=== PATIENT | male | born 1960 | race Caucasian/White ===

== ENCOUNTER 2017-04-21 18:29 | Inpatient (IN) ==
[2017-04-21] MEDS ORDERED: 0.9 % Sodium Chloride 500 ML IVC ONE (18:58)
--- NOTE | 2017-04-21 18:59 | Emergency Department Note ---
Disposition Clinical Impression: Atrial fibrillation with RVR UTI (urinary tract infection) Qualifiers: Urinary tract infection type: site unspecified Hematuria presence: without hematuria Qualified Code(s): N39.0 - Urinary tract infection, site not specified CHF (congestive heart failure) Qualifiers: Heart failure type: unspecified Heart failure chronicity: acute on chronic Qualified Code(s): I50.9 - Heart failure, unspecified Disposition: Admitted As Inpatient Condition: Good Dizziness HPI - General Chief Complaint: ED Dizziness Stated Complaint: dizzy and toe pain Time Seen by Provider: 04/21/17 18:58 Source: patient, EMS Mode of arrival: EMS Limitations: language barrier (cognitive impairment), physical limitation Nursing Notes Reviewed: Yes Vital Signs Reviewed: Yes - History of Present Illness HPI Narrative: Patient presents to the ED from [facility] with report of dizziness and nausea as well as left foot pain from an ulcer. custodial report patient has an ulcer on his left foot that he has been seen for and had cultures drawn. They are concerned with the dizziness and low-grade fever at the skilled nursing today due to possibility of spreading infection and sent him to the ED. He was noted to be tachycardic at the skilled nursing. On arrival here he reports a spinning sensation which he fell and caught himself on his dresser at the skilled nursing. He did not lose consciousness or hit his head. He does still feel dizzy currently. He does report palpitations but denies any chest pain. No headache or shortness of breath. He does complain of pain in his left great toe. He has nausea but no vomiting. He does report some watery diarrhea earlier today. Denies any blurry vision or double vision. Erosive glucose was 106 at the skilled nursing. Other medical history is notable for diabetes, A. fib, CHF and hypothyroidism. - Related Data Home Medications Medication Instructions Recorded Confirmed Dextrose/Dextrin/Maltose 31 gm PO ONCE PRN 09/15/14 04/21/17 [Insta-Glucose Gel] Hydroxychloroquine Sulfate 200 mg PO DAILY 09/15/14 04/21/17 [Plaquenil] Insulin Glargine,Hum.rec.anlog 50 unit SQ HS 09/15/14 04/21/17 [Lantus Solostar] Levothyroxine Sodium [Synthroid] 150 mcg PO DAILY 09/15/14 04/21/17 Nitroglycerin [Nitrostat] 0.4 mg SL 3-4XD PRN 09/15/14 04/21/17 Potassium Chloride 10 meq PO DAILY 09/15/14 04/21/17 Spironolactone [Aldactone] 25 mg PO DAILY 09/15/14 04/21/17 cloNIDine HCl [Clonidine HCl] 0.2 mg PO TID 02/12/15 04/21/17 Aspirin 81 mg PO DAILY 12/22/16 04/21/17 Dimethicone/Zinc Oxide [Nicanor 1 applic TP BID 12/22/16 04/21/17 Protect Cream] Glimepiride [Amaryl] 1 mg PO ACHS 12/22/16 04/21/17 Nystatin POWDER [Nystop] 1 appl TP BID 12/22/16 04/21/17 Cholecalciferol (Vitamin D3) 2,000 unit PO 04/21/17 [Vitamin D] Ferrous Sulfate [Iron] 325 mg PO DAILY 04/21/17 04/21/17 Previous Rx's Medication Instructions Recorded Bumetanide [Bumex] 2 mg PO BID tablet 09/18/14 Metoprolol [Lopressor] 50 mg PO BID tablet 09/18/14 Verapamil ER (24 HR) [Calan SR] 240 mg PO HS 365 Days tablet.er 09/18/14 Allergies Allergy/AdvReac Type Severity Reaction Status Date / Time No Known Allergies Allergy Verified 12/22/16 11:46 Constitutional: Reports: fever. Denies: chills, weakness, weight change Eyes: Denies: eye pain, eye discharge, vision change ENT ED: Denies: ear pain, throat pain, dental pain, hearing loss, epistaxis, congestion, dysphagia Cardiovascular: Reports: palpitations. Denies: chest pain, dyspnea on exertion , edema, syncope Respiratory: Denies: cough, dyspnea, wheezes, hemoptysis, stridor Gastrointestinal: Reports: nausea. Denies: abdominal pain, vomiting, diarrhea, constipation, hematemesis, melena, hematochezia Genitourinary: Denies: urgency, dysuria, frequency, hematuria Musculoskeletal: Reports: as per HPI, arthralgia (left great toe pain). Denies : back pain, neck pain, myalgia Integumentary: Denies: rash, abrasion, lesions Neurological: Denies: headache, weakness, numbness, paresthesias, confusion, abnormal gait, vertigo Psychiatric: Denies: anxiety, depression, suicidal thoughts, homicidal thoughts , auditory hallucinations, visual hallucinations Endocrine: Denies: fatigue Hematological/Lymphatic: Denies: easy bleeding, easy bruising Allergic/Immunologic: Denies: facial swelling, urticaria Past Medical History - Past Medical History Medical history: Reports: diabetes, GERD, atrial fibrillation, hyperlipidemia, hypertension, other, thyroid disease, CHF Psychiatric history: Reports: other - Social History Smoking Status: Unknown if ever smoked Smokeless Tobacco Status: No Alcohol use: Reports: none Drug use: Reports: none Physical Exam - General Limitations: language barrier, physical limitation General appearance: alert, obese - Head Head exam: atraumatic, normocephalic, normal inspection - Eye Eye exam: Present: normal appearance, PERRL, EOMI - ENT ENT exam: normal exam, normal oropharynx, mucous membranes moist - Neck Neck exam: Present: normal inspection, full ROM, trachea midline - Chest Chest inspection: Present: normal inspection, symmetric chest wall rise - Respiratory Respiratory exam: Present: normal lung sounds bilaterally - Cardiovascular Cardiovascular exam: Present: tachycardia, irregular rhythm - Abdominal Exam Abdominal exam: Present: soft, Non-Tender. Absent: tenderness, distention, guarding, rebound, rigidity - Extremities Exam Extremities exam: Present: full ROM, other (Chronic lower extremity swelling with thickened skin and discoloration). Absent: tenderness, pedal edema - Expanded Lower Extremity Exam Foot/toe exam: Present: other (Scabbed ulcer to plantar surface of left great toe, no surrounding redness, warmth or active drainage) Neurovascular/Tendon exam: Absent: motor deficit, sensory deficit, tendon deficit - Back Exam Back exam: Present: normal inspection, full ROM. Absent: tenderness - Neurological Exam Neurological exam: Present: alert, oriented X3 - Psychiatric Psychiatric exam: Present: normal affect, normal mood - Skin Skin exam: Present: warm, dry, intact, normal color Course Course Narrative: History presents to the ED with report of tachycardia, low-grade fever and dizziness with the nursing staff is concerned may be related to spreading infection from his left foot ulcer. On arrival however he was found to be tachycardic with a heart rate in the 140s with A. fib with RVR on site monitor. The ulcer in his toe does not have any evidence of surrounding cellulitis. He has chronic skin changes however in the lower extremities with some pitting edema. Will obtain labs and imaging and given a small fluid bolus. If heart rate does not respond will consider Cardizem. - Reevaluation(s) Reevaluation #1: There is no improvement in heart rate with IV fluids. He was given a Cardizem bolus with only a brief decrease in heart rate into the 110s. Laboratory studies show leukocytosis with left shift but lactic acid is normal. Urinalysis does show evidence of UTI. BNP is elevated and chest x-ray shows pulmonary vascular congestion concerning for CHF exacerbation as well. He was started on a Cardizem drip, given IV lasix and antibiotics for his UTI. He will require admission for rate control of his A. fib as well as continued IV antibiotics and IV diuretics. Reevaluation #2: I spoke to the hospitalist on-call, Dr. Allen, who has agreed to accept the patient. He requested the patient be given 0.25 of Lanoxin while staying on the Cardizem drip at 5mh/hr given the decline in blood pressure. He requested that an additional dose of 0.25 Lanoxin be given in 2 hours if patient's heart rate has remained in the 120s or higher. Arrangements were made for admission and these orders were conveyed to the floor nursing staff. Vital Signs Temperature 98.6 F 04/21/17 18:30 Pulse Rate 140 04/21/17 18:30 Respiratory Rate 20 04/21/17 18:30 Blood Pressure 132/95 04/21/17 18:30 O2 Sat by Pulse Oximetry 97 04/21/17 18:30 Temperature 99.7 F H 04/22/17 04:05 Pulse Rate 108 04/22/17 04:05 Respiratory Rate 18 04/22/17 04:05 Blood Pressure 111/69 04/22/17 04:05 O2 Sat by Pulse Oximetry 92 04/22/17 04:05 Oxygen Delivery Oxygen Delivery Room Air Dizziness - Medical Records Medical records reviewed: Yes I reviewed the patient's medical records. - Lab Data Lab results reviewed: Yes I reviewed the patient's lab results. Result diagrams: 04/21/17 19:23 04/21/17 19:23 Lab Results 04/21/17 04/21/17 04/21/17 Range/Units 19:23 19:23 19:23 WBC 16.0 H (4.3-11.1) K/mcL RBC 5.31 (4.19-5.50) M/mcL Hgb 14.5 (12.9-16.9) g/dL Hct 44.2 (37.5-50.1) % MCV 83.2 (83.0-100.0) fL MCH 27.3 L (28.0-33.3) pg MCHC 32.8 (31.6-35.5) g/dL RDW 16.5 H (11.5-14.5) % Plt Count 104 L (140-400) K/mcL MPV 11.6 (9.4-12.4) fL Seg Neutrophils % 80.0 % Band Neutrophils % 14.0 H (0-4) % Lymphocytes % 2.0 % Monocytes % 4.0 % Neutrophils # 15.0 H (1.6-8.9) K/mcL Lymphocytes # 0.3 L (0.6-4.6) K/mcL Monocytes # 0.6 (0.0-1.3) K/mcL Toxic Granulation Present A (Not Present) Platelet Estimate Normal (Normal) Hypochromasia Present A (Not Present) PT 12.8 H (9.4-12.1) Seconds INR 1.2 APTT 28.9 (26.0-36.0) Seconds Sodium 139 (136-145) mEq/L Potassium 3.3 L (3.5-5.1) mEq/L Chloride 99 (98-107) mEq/L Carbon Dioxide 27 (23-29) mEq/L BUN 28 H (6-20) mg/dL Creatinine 1.38 H (0.70-1.30) mg/dL Est GFR ( Amer) > 60 (> 60) Est GFR (Non-Af Amer) 54 L (> 60) BUN/Creatinine Ratio 20 (6-26) Glucose 97 (70-105) mg/dL Calculated Osmolality 293 (280-300) Lactic Acid (0.5-2.2) mmol/L Calcium 9.2 (8.6-10.3) mg/dL Troponin I < 0.03 (< 0.04) ng/mL B-Natriuretic Peptide (Less than 100) pg/mL TSH 3.055 (0.340-5.600) mcIU/mL Urine Color (Yellow) Urine Clarity (Clear) Urine pH (5.0-8.0) pH Units Ur Specific [place] (1.010-1.025) Urine Protein (Neg-Trace) mg/dL Urine Glucose (UA) (Normal) mg/dL Urine Ketones (Negative) mg/dL Urine Blood (Negative) Urine Nitrite (Negative) Urine Bilirubin (Negative) Urine Urobilinogen (Normal) mg/dL Ur Leukocyte Esterase (Negative) Urine Microscopic RBC (0-3) per hpf Urine Microscopic WBC (0-3) per hpf Ur Squamous Epith Cells (None-Few) per lpf Urine Bacteria (None-Few) per hpf Hyaline Casts (None-Few) per lpf Granular Casts (None Seen) per lpf WBC Casts (None Seen) per lpf Ur Culture Indicated? (NO) 04/21/17 04/21/17 04/21/17 Range/Units 19:23 19:23 20:25 WBC (4.3-11.1) K/mcL RBC (4.19-5.50) M/mcL Hgb (12.9-16.9) g/dL Hct (37.5-50.1) % MCV (83.0-100.0) fL MCH (28.0-33.3) pg MCHC (31.6-35.5) g/dL RDW (11.5-14.5) % Plt Count (140-400) K/mcL MPV (9.4-12.4) fL Seg Neutrophils % % Band Neutrophils % (0-4) % Lymphocytes % % Monocytes % % Neutrophils # (1.6-8.9) K/mcL Lymphocytes # (0.6-4.6) K/mcL Monocytes # (0.0-1.3) K/mcL Toxic Granulation (Not Present) Platelet Estimate (Normal) Hypochromasia (Not Present) PT (9.4-12.1) Seconds INR APTT (26.0-36.0) Seconds Sodium (136-145) mEq/L Potassium (3.5-5.1) mEq/L Chloride (98-107) mEq/L Carbon Dioxide (23-29) mEq/L BUN (6-20) mg/dL Creatinine (0.70-1.30) mg/dL Est GFR ( Amer) (> 60) Est GFR (Non-Af Amer) (> 60) BUN/Creatinine Ratio (6-26) Glucose (70-105) mg/dL Calculated Osmolality (280-300) Lactic Acid 1.5 (0.5-2.2) mmol/L Calcium (8.6-10.3) mg/dL Troponin I (< 0.04) ng/mL B-Natriuretic Peptide 330 H (Less than 100) pg/mL TSH (0.340-5.600) mcIU/mL Urine Color Yellow (Yellow) Urine Clarity Clear (Clear) Urine pH 5.0 (5.0-8.0) pH Units Ur Specific [place] 1.010 (1.010-1.025) Urine Protein 30 H (Neg-Trace) mg/dL Urine Glucose (UA) Normal (Normal) mg/dL Urine Ketones Trace H (Negative) mg/dL Urine Blood Small H (Negative) Urine Nitrite Negative (Negative) Urine Bilirubin Negative (Negative) Urine Urobilinogen Normal (Normal) mg/dL Ur Leukocyte Esterase Small H (Negative) Urine Microscopic RBC 3-5 H (0-3) per hpf Urine Microscopic WBC 30-50 H (0-3) per hpf Ur Squamous Epith Cells Few (None-Few) per lpf Urine Bacteria Many H (None-Few) per hpf Hyaline Casts Few (None-Few) per lpf Granular Casts Moderate H (None Seen) per lpf WBC Casts Few H (None Seen) per lpf Ur Culture Indicated? YES A (NO) - Radiology Data Radiology results reviewed: Yes I reviewed the patient's radiology results. Impressions Chest X-Ray 04/21/17 18:56 IMPRESSION: 1. Pulmonary vascular congestion. 2. Cardial -pericardial margin, similar when compared to the previous exam. D/ / Murtaza Gr MD / Murtaza Gr MD Interpreting Provider: Murtaza Gr MD - EKG Data EKG attestation: Yes I reviewed and interpreted this EKG. Rate: tachycardia Rhythm: A.Fib [place]/QRS: normal Interpretation: other (A-fib with RVR)
[2017-04-21 19:31] LABS: Hematocrit 44.2 % (37.5-50.1); Hemoglobin 14.5 g/dL (12.9-16.9); Mean Corpuscular HGB Conc 32.8 g/dL (31.6-35.5); Mean Corpuscular Hemoglobin 27.3 pg (28.0-33.3); Mean Corpuscular Volume 83.2 fL (83.0-100.0); Mean Platelet Volume 11.6 fL (9.4-12.4); Platelet Count 104 K/mcL (140-400); Red Blood Count 5.31 M/mcL (4.19-5.50); Red Cell Distribution Width 16.5 % (11.5-14.5)
[2017-04-21 19:41] LABS: INR 1.2; Prothrombin Time 12.8 Seconds (9.4-12.1)
[2017-04-21 19:43] LABS: Activated Partial Thrombo Time 28.9 Seconds (26.0-36.0)
[2017-04-21 19:48] LABS: BUN/Creatinine Ratio 20 (6-26); Blood Urea Nitrogen 28 mg/dL (6-20); Calcium 9.2 mg/dL (8.6-10.3); Carbon Dioxide 27 mEq/L (23-29); Chloride 99 mEq/L (98-107); Glucose 97 mg/dL (70-105); Osmolality,Calculated 293 (280-300); Potassium 3.3 mEq/L (3.5-5.1); Sodium 139 mEq/L (136-145); eGFR For Non-African Americans 54 (> 60)
[2017-04-21 19:53] LABS: Troponin I < 0.03 ng/mL (< 0.04)
[2017-04-21 20:06] LABS: Thyroid Stimulating Hormone 3.055 mcIU/mL (0.340-5.600)
[2017-04-21 20:16] LABS: Lymphocytes # 0.3 K/mcL (0.6-4.6); Monocytes # 0.6 K/mcL (0.0-1.3)
[2017-04-21 20:18] LABS: Hypochromasia Present (Not Present); Platelet Estimate Normal (Normal); Toxic Granulation Present (Not Present)
[2017-04-21] MEDS ORDERED: Furosemide 40 MG/4 ML VIAL IVP ONE (20:19)
[2017-04-21 20:35] LABS: Bilirubin,Urine Negative (Negative); Blood,Urine Small (Negative); Clarity,Urine Clear (Clear); Color,Urine Yellow (Yellow); Glucose,Urine (UA) Normal (Normal); Ketones,Urine Trace mg/dL (Negative); Leukocyte Esterase,Urine Small (Negative); Nitrite,Urine Negative (Negative); Protein,Urine 30 mg/dL (Neg-Trace); Urobilinogen,Urine Normal (Normal)
[2017-04-21 20:44] LABS: WBC,Urine 30-50 per hpf (0-3)
[2017-04-21 20:45] LABS: Squamous Epithelial Cell,Urine Few per lpf (None-Few)
[2017-04-21 20:46] LABS: Bacteria,Urine Many per hpf (None-Few); Granular Casts,Urine Moderate per lpf (None Seen); Hyaline Casts,Urine Few per lpf (None-Few); White Blood Cell Casts,Urine Few per lpf (None Seen)
[2017-04-21] MEDS ORDERED: cefTRIAXone 1,000 MG in Water for inj. (sterile) 20 ML 10 ML IVP ONE (20:56)
[2017-04-21] MEDS ORDERED: Naloxone 0.4 MG/ML INJ IVP PRN (23:04)
[2017-04-22] MEDS ORDERED: Dextrose Gel 15 GM/37.5 ML TUBE PO PRN ×2 (00:09)
[2017-04-22] MEDS ORDERED: D5% in Water 1,000 ML IVC PRN (00:09)
[2017-04-22] MEDS ORDERED: Naloxone 0.4 MG/ML INJ IVP PRN (00:09)
[2017-04-22] MEDS ORDERED: *HR* Dextrose 50 % in Water (Syg) 50 ML SYRINGE IVP PRN (00:09)
[2017-04-22] MEDS ORDERED: *HR* Digoxin 0.5 MG/2 ML AMPUL IVP SCH (01:00)
[2017-04-22] MEDS: *HR* Digoxin 0.5 MG/2 ML AMPUL IVP SCH (03:26)
[2017-04-22] MEDS: Ondansetron 4 MG/2 ML VIAL IVP PRN ×2 (06:22→13:39)
[2017-04-22] MEDS ORDERED: *HR* Glimepiride 2 MG TABLET PO SCH (08:00)
[2017-04-22] MEDS: Aspirin 81 MG TAB.CHEW PO SCH (08:12)
[2017-04-22] MEDS: BAZA PROTECT TP SCH ×2 (08:13→20:19)
[2017-04-22] MEDS: Insulin LISPRO 300 UNITS/3 ML VIAL SQ SCH ×4 (08:13→20:19)
[2017-04-22] MEDS: Nystatin POWDER 30 GM BOTTLE TP SCH ×2 (08:35→20:19)
[2017-04-22] MEDS ORDERED: Bumetanide 1 MG TABLET PO SCH (09:00)
[2017-04-22] MEDS ORDERED: Spironolactone 25 MG TABLET PO SCH (09:00)
--- NOTE | 2017-04-22 11:17 | Internal Med History&Physical ---
Date of Encounter: 04/22/17 Time of Encounter: 10:35 Assessment and Plan (1) Cellulitis Current visit: Yes Status: Acute He received a dose of IV Rocephin in emergency room. I will start IV vancomycin and Unasyn with lactobacillus. I will send him for MRI of the left foot to evaluate for osteomyelitis. Qualifiers: Site of cellulitis: extremity Site of cellulitis of extremity: lower extremity Laterality: left Qualified Code(s): L03.116 - Cellulitis of left lower limb (2) Hypokalemia Current visit: Yes Status: Acute Probably secondary to diuretic use. Will give increased dose of supplemental potassium and monitor labs. (3) Atrial fibrillation Current visit: No Status: Chronic He was started on Cardizem drip because of RVR. I have ordered Lanoxin and will discontinue the Cardizem drip since his rate is now controlled. Qualifiers: Atrial fibrillation type: chronic Qualified Code(s): I48.2 - Chronic atrial fibrillation (4) Hypothyroidism Current visit: No Status: Acute TSH was normal at 3.055 on admission. Continue present dose Synthroid Qualifiers: Hypothyroidism type: unspecified Qualified Code(s): E03.9 - Hypothyroidism , unspecified (5) UTI (urinary tract infection) Current visit: Yes Status: Acute Will start IV Unasyn and vancomycin. Qualifiers: Urinary tract infection type: site unspecified Hematuria presence: with hematuria Qualified Code(s): N39.0 - Urinary tract infection, site not specified; R31.9 - Hematuria, unspecified; R31.9 - Hematuria, unspecified Internal Medicine - H&P: HPI Chief complaint: Dizzy, foot infection Admitted From: Emergency Dept Plans for Post Hospital Care: Transfer [employer] [facility] History of present illness: Mr. Bergeron is a 56 year old male who was brought from [facility] after staff reported him to have complaints of dizziness and left foot pain. His evaluated in emergency room and found to have probable cellulitis of the left leg. There was a chronic ulcer on the plantar surface of the left great toe. He also had A. fib with RVR, leukocytosis with left shift, hypokalemia, and azotemia. He was admitted to [facility] floor for ongoing care needs. He has MRDD and cannot supply reliable history. Past Med Surg Social Fam HX - Past Medical History Medical history: diabetes, GERD, atrial fibrillation, hyperlipidemia, hypertension, other, thyroid disease, CHF Psychiatric history: other - Social History Smoking Status: Unknown if ever smoked Smokeless Tobacco Status: No Alcohol use: none Drug use: none Internal Medicine - H&P: Meds Dextrose/Dextrin/Maltose [Insta-Glucose Gel] 31 gm PO ONCE PRN 09/15/14 [History ] Hydroxychloroquine Sulfate [Plaquenil] 200 mg PO DAILY 09/15/14 [History] Insulin Glargine,Hum.rec.anlog [Lantus Solostar] 50 unit SQ HS 09/15/14 [History ] Levothyroxine Sodium [Synthroid] 150 mcg PO DAILY 09/15/14 [History] Nitroglycerin [Nitrostat] 0.4 mg SL 3-4XD PRN 09/15/14 [History] Potassium Chloride 10 meq PO DAILY 09/15/14 [History] Spironolactone [Aldactone] 25 mg PO DAILY 09/15/14 [History] Bumetanide [Bumex] 2 mg PO BID tablet 09/18/14 [Rx] Metoprolol [Lopressor] 50 mg PO BID tablet 09/18/14 [Rx] Verapamil ER (24 HR) [Calan SR] 240 mg PO HS 365 Days tablet.er 09/18/14 [Rx] cloNIDine HCl [Clonidine HCl] 0.2 mg PO TID 02/12/15 [History] Aspirin 81 mg PO DAILY 12/22/16 [History] Dimethicone/Zinc Oxide [Nicanor Protect Cream] 1 applic TP BID 12/22/16 [History] Glimepiride [Amaryl] 1 mg PO ACHS 12/22/16 [History] Nystatin POWDER [Nystop] 1 appl TP BID 12/22/16 [History] Cholecalciferol (Vitamin D3) [Vitamin D] 2,000 unit PO 04/21/17 [History] Ferrous Sulfate [Iron] 325 mg PO DAILY 04/21/17 [History] 3 Allergy/AdvReac Type Severity Reaction Status Date / Time No Known Allergies Allergy Verified 12/22/16 11:46 All Systems PM: A 10-system review of systems was performed and is negative for pertinent findings except as documented above in the HPI. Review of systems: Review of systems is obtained from available records. General: His weight has decreased from 207.462 kg on 09/18/2014 to 186.426 kg at present. Cardiovascular: He has history of hypertension. He had echocardiogram done 2013 at [facility] which showed LVEF of 60-65% with increased left ventricular posterior wall thickness at 1.3 cm and increased interventricular septum thickness at 1.5 cm. There was mild diastolic dysfunction felt to be present. He denies known DVT or pulmonary embolus. He was found to have atrial fibrillation of unknown duration at time of admission September 2014. He is on aspirin at the [facility] but does not take oral anticoagulation. He is on verapamil for rate control. He also uses metoprolol. Respiratory: He is a lifelong nonsmoker and has no documented chronic lung disease. GI: He denies trouble with his liver gallbladder or exocrine pancreas. : He has a large right hydrocele which was evaluated by Dr. Ruben Samayoa during the [facility] stay December 2012. He denies other kidney or bladder disorders. Neurologic: No history of large distribution strokes or seizures. He does have MRDD. Endocrine: He has DM 2, hyperlipidemia, and hypothyroidism. Hematology/oncology: He has history of anemia which has now resolved. He has chronic mild thrombocytopenia. He does not have known internal malignancy. Psychiatric: He has anxiety and depression but denies other mental health issues. [place] skeletal: He denies arthritis, gout, or osteoporosis. - Constitutional Vitals: Temp Pulse Resp BP Pulse Ox 98.5 F 92 17 111/65 91 04/22/17 10:46 04/22/17 10:46 04/22/17 10:46 04/22/17 10:46 04/22/17 10:46 Exam: Gen.: He is a well-developed morbidly obese male lying in bed who appears in no severe distress HEENT: Head is atraumatic and normocephalic. Eyes: EOMI. There is no scleral icterus. Mouth: Mucosa is moist. Neck: He has a large jowl. Heart: Irregularly irregular with rate approximately 104/m. Lungs: No wheezes or crackles are heard. Abdomen: He has a very large pannus. Abdomen is nontender to palpation. Extremities: He has massive lymphedema of his lower legs with marked adiposity. There is erythema extending from the toes to the knee involving almost the entire lower leg. There is similar but lesser amount of right leg erythema involving the lower portion of the anterior walter. Dorsalis pedis and posterior tibial pulses are nonpalpable. He has a 10-12 mm ulcer on the plantar surface of the left great toe with surrounding callus. He has limited mobility of his right shoulder. Neurologic: Mental status: He is able to answer a few questions but he is a poor historian. He does not know his age or the date. Cranial nerves: Smile is symmetric. Forehead wrinkles bilaterally. Tongue protrudes midline. EOMI. Motor: He cannot extend the right arm to test for pronation. Left arm shows no pronator drift. Cerebellar: Finger to nose is intact with the left hand Skin: Warm and dry with erythema as described above involving most of the left lower leg and part of the right lower leg. Internal Med - H&P Results - Labs CBC & Chem 7: 04/21/17 19:23 04/21/17 19:23 - VTE Reasons for not Prescribing Prophylaxis: Treatment not Indicated - Low risk for VTE
[2017-04-22] MEDS: 0.45 % Sodium Chloride w/KCl 20 MEQ/1,000 ML MLS IVC SCH (13:38)
[2017-04-22] MEDS: Bumetanide 1 MG TABLET PO SCH ×2 (13:40→18:03)
[2017-04-22] MEDS: *HR* Digoxin 0.25 MG TABLET PO SCH (13:40)
[2017-04-22] MEDS: Ampicillin/Sulbactam 3,000 MG in 0.9 % Sodium Chloride Mini Bag 100 ML IVPB SCH ×2 (13:47→17:59)
[2017-04-22] MEDS: *HR* Glimepiride 2 MG TABLET PO SCH (17:59)
[2017-04-22 18:01] LABS: Basophils % 0.1 %; Immature Granulocytes % 1.3 % (0-4); Lymphocytes # 0.3 K/mcL (0.6-4.6); Lymphocytes % 2.6 %; Mean Corpuscular HGB Conc 32.5 g/dL (31.6-35.5); Mean Corpuscular Hemoglobin 27.3 pg (28.0-33.3); Mean Platelet Volume 11.6 fL (9.4-12.4); Monocytes # 0.4 K/mcL (0.0-1.3); Neutrophils # 9.5 K/mcL (1.6-8.9); Red Blood Count 4.76 M/mcL (4.19-5.50); Red Cell Distribution Width 17.3 % (11.5-14.5)
[2017-04-22 18:03] LABS: Platelet Count 80 K/mcL (140-400)
[2017-04-22 18:18] LABS: BUN/Creatinine Ratio 22 (6-26); Blood Urea Nitrogen 32 mg/dL (6-20); Calcium 8.1 mg/dL (8.6-10.3); Carbon Dioxide 28 mEq/L (23-29); Chloride 99 mEq/L (98-107); Glucose 148 mg/dL (70-105); Osmolality,Calculated 288 (280-300); Potassium 3.3 mEq/L (3.5-5.1); Sodium 134 mEq/L (136-145); eGFR For Non-African Americans 51 (> 60)
[2017-04-22] MEDS ORDERED: *HR* Digoxin 0.5 MG/2 ML AMPUL IVP ONE (19:00)
[2017-04-22] MEDS: Lactobacillus 1 EACH CAP.SPRINK PO SCH (20:10)
[2017-04-22] MEDS: Insulin DETEMIR 100 UNIT/ML X5UNITS SQ SCH (20:10)
[2017-04-23] MEDS: Ampicillin/Sulbactam 3,000 MG in 0.9 % Sodium Chloride Mini Bag 100 ML IVPB SCH ×5 (02:39→23:30)
[2017-04-23 04:47] LABS: Basophils % 0.2 %; Eosinophils % 0.1 %; Hematocrit 40.7 % (37.5-50.1); Hemoglobin 12.9 g/dL (12.9-16.9); Immature Granulocytes % 0.6 % (0-4); Lymphocytes # 0.2 K/mcL (0.6-4.6); Lymphocytes % 2.9 %; Mean Corpuscular HGB Conc 31.7 g/dL (31.6-35.5); Mean Corpuscular Hemoglobin 26.9 pg (28.0-33.3); Mean Platelet Volume 11.3 fL (9.4-12.4); Monocytes # 0.5 K/mcL (0.0-1.3); Monocytes % 5.5 %; Neutrophils # 7.5 K/mcL (1.6-8.9); Platelet Count 74 K/mcL (140-400); Red Blood Count 4.79 M/mcL (4.19-5.50); Red Cell Distribution Width 17.2 % (11.5-14.5); Segmented Neutrophils % 90.7 %
[2017-04-23 05:03] LABS: BUN/Creatinine Ratio 24 (6-26); Blood Urea Nitrogen 30 mg/dL (6-20); Calcium 8.1 mg/dL (8.6-10.3); Carbon Dioxide 29 mEq/L (23-29); Chloride 102 mEq/L (98-107); Digoxin 0.4 ng/mL (0.8-2.0); Glucose 70 mg/dL (70-105); Magnesium 1.9 mg/dL (1.6-2.6); Osmolality,Calculated 289 (280-300); Potassium 3.5 mEq/L (3.5-5.1); Sodium 137 mEq/L (136-145); eGFR For Non-African Americans 60 (> 60)
[2017-04-23] MEDS: *HR* Digoxin 0.5 MG/2 ML AMPUL IVP SCH (05:51)
[2017-04-23] MEDS: 0.45 % Sodium Chloride w/KCl 20 MEQ/1,000 ML MLS IVC SCH ×3 (06:23→20:51)
--- NOTE | 2017-04-23 09:27 | Internal Med Progress Note ---
Date of Encounter: 04/23/17 Time of Encounter: 09:15 - Assessment and plan (1) Cellulitis Current Visit: Yes Status: Acute Assessment and plan: April 23. Continue IV vancomycin and Unasyn with lactobacillus. Will do MRI on 04/25/2017. Qualifiers: Site of cellulitis: extremity Site of cellulitis of extremity: lower extremity Laterality: left Qualified Code(s): L03.116 - Cellulitis of left lower limb (2) Hypokalemia Current Visit: Yes Status: Acute Assessment and plan: April 23. Resolved. Continue supplemental potassium and monitor labs. (3) Atrial fibrillation Current Visit: No Status: Chronic Assessment and plan: April 23. Heart rate has improved. Continue Lanoxin and metoprolol. Continue aspirin for CVA prophylaxis. Qualifiers: Atrial fibrillation type: chronic Qualified Code(s): I48.2 - Chronic atrial fibrillation (4) Hypothyroidism Current Visit: No Status: Acute Assessment and plan: April 23. Continue present dose Synthroid. Qualifiers: Hypothyroidism type: unspecified Qualified Code(s): E03.9 - Hypothyroidism , unspecified (5) UTI (urinary tract infection) Current Visit: Yes Status: Acute Assessment and plan: April 23. Urine culture final report is pending. Continue IV Unasyn and vancomycin with lactobacillus. Qualifiers: Urinary tract infection type: site unspecified Hematuria presence: with hematuria Qualified Code(s): N39.0 - Urinary tract infection, site not specified; R31.9 - Hematuria, unspecified; R31.9 - Hematuria, unspecified - Subjective Interval history: April 23. He has no new complaints. - Constitutional Vitals: Temp Pulse Resp BP Pulse Ox 98.1 F 102 20 127/70 93 04/23/17 08:00 04/23/17 08:00 04/23/17 08:00 04/23/17 08:00 04/23/17 08:00 Exam: He is resting comfortably in bed and appears in no acute distress. Heart is irregularly irregular with rate approximately 112/m. Lungs are clear anteriorly. Extremities show no significant change in erythema. I reviewed his medications and lab results. Internal Medicine: Result - Labs CBC & Chem 7: 04/23/17 04:39 04/23/17 04:39 Labs: Short CBC 04/22/17 04/23/17 Range/Units 17:47 04:39 WBC 10.3 8.3 (4.3-11.1) K/mcL Hgb 13.0 D 12.9 (12.9-16.9) g/dL Hct 40.0 40.7 (37.5-50.1) % Plt Count 80 L 74 L (140-400) K/mcL Neutrophils # 9.5 H 7.5 (1.6-8.9) K/mcL BMP 04/22/17 04/23/17 17:47 04:39 Sodium 134 L 137 Potassium 3.3 L 3.5 Chloride 99 102 Carbon Dioxide 28 29 BUN 32 H 30 H Creatinine 1.44 H 1.26 Glucose 148 H 70 Calcium 8.1 L 8.1 L - ABG Interpretation ABG results: PT/INR, D-dimer PT 12.8 Seconds (9.4-12.1) H 04/21/17 19:23 - Impressions Impressions Foot X-Ray 04/22/17 13:12 IMPRESSION: No evidence of metallic foreign body. D/ / Joselito Richey MD / Joselito Richey MD Interpreting Provider: Joselito Richey MD Foreign Body Localization X-Ray 04/22/17 13:12 IMPRESSION: No evidence of metallic foreign body. D/ / Joselito Richey MD / Joselito Richey MD Interpreting Provider: Joselito Richey MD X-Ray 04/22/17 13:12 IMPRESSION: No evidence of metallic foreign body. D/ / Joselito Richey MD / Joselito Richey MD Interpreting Provider: Joselito Richey MD - VTE Reasons for not Prescribing Prophylaxis: Treatment not Indicated - Low risk for VTE Consult Discharge Plan - Plan Referrals: Casey Mueller MD [Primary Care Provider] - 1 week
[2017-04-23 09:33] LABS: % Iron Saturation 5 % (20-55); Ferritin 258 ng/ml (20-250); Iron 12 mcg/dL (65-175); Transferrin 168 mg/dL (203-362)
[2017-04-23] MEDS: Bumetanide 1 MG TABLET PO SCH ×2 (09:34→17:37)
[2017-04-23] MEDS: *HR* Glimepiride 2 MG TABLET PO SCH ×2 (09:34→17:37)
[2017-04-23] MEDS: *HR* Digoxin 0.25 MG TABLET PO SCH (09:34)
[2017-04-23] MEDS: Lactobacillus 1 EACH CAP.SPRINK PO SCH ×2 (09:35→19:21)
[2017-04-23] MEDS: Aspirin 81 MG TAB.CHEW PO SCH (09:35)
[2017-04-23] MEDS: Insulin LISPRO 300 UNITS/3 ML VIAL SQ SCH ×4 (09:36→20:52)
[2017-04-23] MEDS: Nystatin POWDER 30 GM BOTTLE TP SCH ×2 (09:46→19:21)
[2017-04-23] MEDS: BAZA PROTECT TP SCH ×2 (10:51→19:21)
[2017-04-23] MEDS: Insulin DETEMIR 100 UNIT/ML X5UNITS SQ SCH (20:52)
[2017-04-24] MEDS: *HR* Digoxin 0.5 MG/2 ML AMPUL IVP SCH (00:31)
[2017-04-24] MEDS: Ampicillin/Sulbactam 3,000 MG in 0.9 % Sodium Chloride Mini Bag 100 ML IVPB SCH (05:33)
[2017-04-24 06:51] LABS: Basophils % 0.5 %; Eosinophils % 0.5 %; Hematocrit 40.7 % (37.5-50.1); Hemoglobin 12.9 g/dL (12.9-16.9); Immature Granulocytes % 0.2 % (0-4); Lymphocytes # 0.3 K/mcL (0.6-4.6); Lymphocytes % 7.1 %; Mean Corpuscular HGB Conc 31.7 g/dL (31.6-35.5); Mean Corpuscular Hemoglobin 27.1 pg (28.0-33.3); Mean Corpuscular Volume 85.5 fL (83.0-100.0); Mean Platelet Volume 11.7 fL (9.4-12.4); Monocytes # 0.4 K/mcL (0.0-1.3); Monocytes % 8.5 %; Neutrophils # 3.4 K/mcL (1.6-8.9); Red Blood Count 4.76 M/mcL (4.19-5.50); Red Cell Distribution Width 16.7 % (11.5-14.5); Segmented Neutrophils % 83.2 %
[2017-04-24 06:53] LABS: Platelet Count 63 K/mcL (140-400)
[2017-04-24 07:09] LABS: BUN/Creatinine Ratio 21 (6-26); Blood Urea Nitrogen 19 mg/dL (6-20); Calcium 7.9 mg/dL (8.6-10.3); Carbon Dioxide 28 mEq/L (23-29); Chloride 105 mEq/L (98-107); Glucose 55 mg/dL (70-105); Osmolality,Calculated 290 (280-300); Potassium 3.3 mEq/L (3.5-5.1); Sodium 140 mEq/L (136-145); eGFR For Non-African Americans > 60 (> 60)
[2017-04-24] MEDS: Lactobacillus 1 EACH CAP.SPRINK PO SCH ×2 (07:50→20:36)
[2017-04-24] MEDS: *HR* Digoxin 0.25 MG TABLET PO SCH ×2 (07:50→13:16)
[2017-04-24] MEDS: Bumetanide 1 MG TABLET PO SCH ×2 (07:50→18:20)
[2017-04-24] MEDS: BAZA PROTECT TP SCH ×2 (07:51→20:41)
[2017-04-24] MEDS: Insulin LISPRO 300 UNITS/3 ML VIAL SQ SCH ×4 (07:51→20:25)
[2017-04-24] MEDS: Aspirin 81 MG TAB.CHEW PO SCH (07:51)
[2017-04-24] MEDS: *HR* Glimepiride 2 MG TABLET PO SCH (07:55)
[2017-04-24] MEDS: Nystatin POWDER 30 GM BOTTLE TP SCH ×2 (08:01→20:41)
[2017-04-24] MEDS: 0.45 % Sodium Chloride w/KCl 20 MEQ/1,000 ML MLS IVC SCH (08:21)
[2017-04-24] MEDS ORDERED: Aminoglycoside Consult 1 EACH MC ONE (10:00)
[2017-04-24] MEDS: Piperacillin/Tazobactam 3.375 GM in 0.9 % Sodium Chloride Mini Bag 100 ML IVPB SCH ×2 (11:39→18:21)
--- NOTE | 2017-04-24 12:34 | Internal Med Progress Note ---
Date of Encounter: 04/24/17 Time of Encounter: 12:25 - Assessment and plan (1) Cellulitis Current Visit: Yes Status: Acute Assessment and plan: April 23. Continue IV vancomycin and Unasyn with lactobacillus. Will do MRI on 04/25/2017. Qualifiers: Site of cellulitis: extremity Site of cellulitis of extremity: lower extremity Laterality: left Qualified Code(s): L03.116 - Cellulitis of left lower limb (2) Hypokalemia Current Visit: Yes Status: Acute Assessment and plan: April 23. Resolved. Continue supplemental potassium and monitor labs. April 24. Potassium is decreased to 3.3. Will increase supplemental potassium and monitor labs. (3) Atrial fibrillation Current Visit: No Status: Chronic Assessment and plan: April 23. Heart rate has improved. Continue Lanoxin and metoprolol. Continue aspirin for CVA prophylaxis. Qualifiers: Atrial fibrillation type: chronic Qualified Code(s): I48.2 - Chronic atrial fibrillation (4) Hypothyroidism Current Visit: No Status: Acute Assessment and plan: April 23. Continue present dose Synthroid. Qualifiers: Hypothyroidism type: unspecified Qualified Code(s): E03.9 - Hypothyroidism , unspecified (5) UTI (urinary tract infection) Current Visit: Yes Status: Acute Assessment and plan: April 23. Urine culture final report is pending. Continue IV Unasyn and vancomycin with lactobacillus. April 24. Urine culture report noted. We will changed from Unasyn to Zosyn. Continue lactobacillus. Qualifiers: Urinary tract infection type: site unspecified Hematuria presence: with hematuria Qualified Code(s): N39.0 - Urinary tract infection, site not specified; R31.9 - Hematuria, unspecified; R31.9 - Hematuria, unspecified (6) DM type 2 (diabetes mellitus, type 2) Current Visit: Yes Status: Chronic Qualifiers: Diabetes mellitus nursing home insulin use: with long term care administrator use Diabetes mellitus complication status: without complication Qualified Code(s): E11.9 - Type 2 diabetes mellitus without complications; Z79.4 - long term care administrator (current) use of insulin; Z79.4 - long term care administrator (current) use of insulin; Z79.4 - long term care administrator ( current) use of insulin; Z79.4 - half-way (current) use of insulin - Subjective Interval history: April 23. He has no new complaints. April 24. He has no new complaints. - Constitutional Vitals: Temp Pulse Resp BP Pulse Ox 98.2 F 100 18 129/90 97 04/24/17 11:24 04/24/17 11:24 04/24/17 11:24 04/24/17 11:24 04/24/17 11:24 Exam: He is resting comfortably in bed and appears in no acute distress. His affect is bright and cheerful. His leg edema and erythema or slightly less. Heart is irregularly irregular rate approximately 108/m. Lungs are clear anteriorly. I reviewed his medications and lab results. Internal Medicine: Result - Labs CBC & Chem 7: 04/24/17 06:20 04/24/17 06:20 Labs: Short CBC 04/24/17 Range/Units 06:20 WBC 4.1 L D (4.3-11.1) K/mcL Hgb 12.9 (12.9-16.9) g/dL Hct 40.7 (37.5-50.1) % Plt Count 63 L (140-400) K/mcL Neutrophils # 3.4 (1.6-8.9) K/mcL BMP 04/24/17 06:20 Sodium 140 Potassium 3.3 L Chloride 105 Carbon Dioxide 28 BUN 19 Creatinine 0.89 Glucose 55 L Calcium 7.9 L - ABG Interpretation ABG results: PT/INR, D-dimer PT 12.8 Seconds (9.4-12.1) H 04/21/17 19:23 - VTE Reasons for not Prescribing Prophylaxis: Treatment not Indicated - Low risk for VTE Consult Discharge Plan - Plan Referrals: Casey Mueller MD [Primary Care Provider] - 1 week
[2017-04-24] MEDS ORDERED: Insulin DETEMIR 100 UNIT/ML X5UNITS SQ SCH (12:43)
[2017-04-24] MEDS: Insulin DETEMIR 100 UNIT/ML X5UNITS SQ SCH ×2 (13:16→20:26)
[2017-04-25] MEDS: Piperacillin/Tazobactam 3.375 GM in 0.9 % Sodium Chloride Mini Bag 100 ML IVPB SCH ×2 (02:16→10:03)
[2017-04-25] MEDS: 0.45 % Sodium Chloride w/KCl 20 MEQ/1,000 ML MLS IVC SCH (02:17)
[2017-04-25] MEDS: *HR* Digoxin 0.5 MG/2 ML AMPUL IVP SCH (05:15)
[2017-04-25 05:17] LABS: Basophils % 0.7 %; Eosinophils % 0.7 %; Hematocrit 40.3 % (37.5-50.1); Hemoglobin 12.8 g/dL (12.9-16.9); Immature Granulocytes % 0.3 % (0-4); Lymphocytes # 0.4 K/mcL (0.6-4.6); Lymphocytes % 13.5 %; Mean Corpuscular HGB Conc 31.8 g/dL (31.6-35.5); Mean Corpuscular Hemoglobin 27.2 pg (28.0-33.3); Mean Corpuscular Volume 85.6 fL (83.0-100.0); Mean Platelet Volume 11.5 fL (9.4-12.4); Monocytes # 0.3 K/mcL (0.0-1.3); Monocytes % 10.5 %; Red Blood Count 4.71 M/mcL (4.19-5.50); Red Cell Distribution Width 16.3 % (11.5-14.5); Segmented Neutrophils % 74.3 %
[2017-04-25 05:20] LABS: Neutrophils # 2.2 K/mcL (1.6-8.9); Platelet Count 72 K/mcL (140-400)
[2017-04-25 05:40] LABS: BUN/Creatinine Ratio 14 (6-26); Blood Urea Nitrogen 12 mg/dL (6-20); Calcium 8.1 mg/dL (8.6-10.3); Carbon Dioxide 29 mEq/L (23-29); Chloride 103 mEq/L (98-107); Digoxin 0.6 ng/mL (0.8-2.0); Glucose 91 mg/dL (70-105); Osmolality,Calculated 283 (280-300); Potassium 3.4 mEq/L (3.5-5.1); Sodium 137 mEq/L (136-145); eGFR For Non-African Americans > 60 (> 60)
[2017-04-25 06:55] VITALS: BP 146/101
[2017-04-25] MEDS: Insulin LISPRO 300 UNITS/3 ML VIAL SQ SCH ×2 (07:20→14:25)
[2017-04-25] MEDS: Bumetanide 1 MG TABLET PO SCH (07:42)
[2017-04-25] MEDS: *HR* Digoxin 0.25 MG TABLET PO SCH (07:42)
[2017-04-25] MEDS: Lactobacillus 1 EACH CAP.SPRINK PO SCH (07:42)
[2017-04-25] MEDS: BAZA PROTECT TP SCH (07:43)
[2017-04-25] MEDS: Aspirin 81 MG TAB.CHEW PO SCH (07:43)
[2017-04-25] MEDS: Nystatin POWDER 30 GM BOTTLE TP SCH (08:00)
--- NOTE | 2017-04-25 10:06 | Internal Med Progress Note ---
Date of Encounter: 04/25/17 Time of Encounter: 09:55 - Assessment and plan (1) Cellulitis Current Visit: Yes Status: Acute Assessment and plan: April 23. Continue IV vancomycin and Unasyn with lactobacillus. Will do MRI on 04/25/2017. April 25. Continue IV Zosyn and vancomycin. MRI will be done today to evaluate for osteomyelitis. Qualifiers: Site of cellulitis: extremity Site of cellulitis of extremity: lower extremity Laterality: left Qualified Code(s): L03.116 - Cellulitis of left lower limb (2) Hypokalemia Current Visit: Yes Status: Acute Assessment and plan: April 23. Resolved. Continue supplemental potassium and monitor labs. April 24. Potassium is decreased to 3.3. Will increase supplemental potassium and monitor labs. April 25. Potassium slightly improved to 3.4. Continue increased dose of potassium. (3) Atrial fibrillation Current Visit: No Status: Chronic Assessment and plan: April 23. Heart rate has improved. Continue Lanoxin and metoprolol. Continue aspirin for CVA prophylaxis. Qualifiers: Atrial fibrillation type: chronic Qualified Code(s): I48.2 - Chronic atrial fibrillation (4) Hypothyroidism Current Visit: No Status: Acute Assessment and plan: April 23. Continue present dose Synthroid. Qualifiers: Hypothyroidism type: unspecified Qualified Code(s): E03.9 - Hypothyroidism , unspecified (5) UTI (urinary tract infection) Current Visit: Yes Status: Acute Assessment and plan: April 23. Urine culture final report is pending. Continue IV Unasyn and vancomycin with lactobacillus. April 24. Urine culture report noted. We will changed from Unasyn to Zosyn. Continue lactobacillus. Qualifiers: Urinary tract infection type: site unspecified Hematuria presence: with hematuria Qualified Code(s): N39.0 - Urinary tract infection, site not specified; R31.9 - Hematuria, unspecified; R31.9 - Hematuria, unspecified (6) DM type 2 (diabetes mellitus, type 2) Current Visit: Yes Status: Chronic Assessment and plan: April 25. Amaryl was discontinued and Levemir dose decreased yesterday because of hypoglycemia. Continue Accu-Cheks with SSI. Qualifiers: Diabetes mellitus manufacturing advisor insulin use: with manufacturing advisor use Diabetes mellitus complication status: without complication Qualified Code(s): E11.9 - Type 2 diabetes mellitus without complications; Z79.4 - creative writing teacher (current) use of insulin; Z79.4 - creative writing teacher (current) use of insulin; Z79.4 - creative writing teacher ( current) use of insulin; Z79.4 - alf (current) use of insulin - Subjective Interval history: April 23. He has no new complaints. April 24. He has no new complaints. April 25. He has no new complaints. He states he has had no further vomiting. - Constitutional Vitals: Temp Pulse Resp BP Pulse Ox 98.5 F 98 18 146/101 96 04/25/17 06:50 04/25/17 06:50 04/25/17 06:50 04/25/17 06:50 04/25/17 06:50 Exam: He is resting comfortably in bed and appears in no acute distress. His affect is cheerful. There is slight decrease in the erythema and edema of his legs. I reviewed his medications and lab results. Internal Medicine: Result - Labs CBC & Chem 7: 04/25/17 04:43 04/25/17 04:43 Labs: Short CBC 04/25/17 Range/Units 04:43 WBC 3.0 L (4.3-11.1) K/mcL Hgb 12.8 L (12.9-16.9) g/dL Hct 40.3 (37.5-50.1) % Plt Count 72 L (140-400) K/mcL Neutrophils # 2.2 (1.6-8.9) K/mcL BMP 04/25/17 04:43 Sodium 137 Potassium 3.4 L Chloride 103 Carbon Dioxide 29 BUN 12 Creatinine 0.88 Glucose 91 Calcium 8.1 L - ABG Interpretation ABG results: PT/INR, D-dimer PT 12.8 Seconds (9.4-12.1) H 04/21/17 19:23 - VTE Reasons for not Prescribing Prophylaxis: Treatment not Indicated - Low risk for VTE Consult Discharge Plan - Plan Referrals: Casey Mueller MD [Primary Care Provider] - 1 week
[2017-04-25] MEDS ORDERED: *HR* Propranolol 1 MG/ML VIAL IVP ONE (10:59)
--- NOTE | 2017-04-25 14:56 | Discharge Summary ---
Date of Encounter: 04/25/17 Time of Encounter: 10:00 - Discharge Diagnosis (1) Cellulitis Priority: Primary Status: Acute Qualifiers: Site of cellulitis: extremity Site of cellulitis of extremity: lower extremity Laterality: left Qualified Code(s): L03.116 - Cellulitis of left lower limb (2) Hypokalemia Priority: Secondary Status: Acute (3) Atrial fibrillation Priority: Secondary Status: Chronic Qualifiers: Atrial fibrillation type: chronic Qualified Code(s): I48.2 - Chronic atrial fibrillation (4) Hypothyroidism Priority: Secondary Status: Chronic Qualifiers: Hypothyroidism type: unspecified Qualified Code(s): E03.9 - Hypothyroidism , unspecified (5) UTI (urinary tract infection) Priority: Secondary Status: Acute Qualifiers: Urinary tract infection type: site unspecified Hematuria presence: with hematuria Qualified Code(s): N39.0 - Urinary tract infection, site not specified; R31.9 - Hematuria, unspecified; R31.9 - Hematuria, unspecified (6) DM type 2 (diabetes mellitus, type 2) Priority: Secondary Status: Chronic Qualifiers: Diabetes mellitus [facility] insulin use: with termite exterminator helper use Diabetes mellitus complication status: without complication Qualified Code(s): E11.9 - Type 2 diabetes mellitus without complications; Z79.4 - petroleum terminal plant operator (current) use of insulin; Z79.4 - petroleum terminal plant operator (current) use of insulin; Z79.4 - senior living ( current) use of insulin; Z79.4 - senior living (current) use of insulin Hospital course: Mr. Bergeron is a 56 year old male who was brought from [facility] after staff reported him to have complaints of dizziness and left foot pain. His evaluated in emergency room and found to have probable cellulitis of the left leg. There was a chronic ulcer on the plantar surface of the left great toe. He also had A. fib with RVR, leukocytosis with left shift, hypokalemia, and azotemia. He was admitted to [facility] for ongoing care needs. Initial orders were written by the emergency room physician. I saw him on April 22 and performed a history and physical. He was started on IV vancomycin and Unasyn with lactobacillus. Urine culture returned showing Proteus Mirabilis and he was changed from Unasyn to Zosyn. Vancomycin was continued. There was slight improvement in the erythema and edema of his legs. He will continue with oral antibiotics for 5 additional days at discharge. MRI of the left foot done to further evaluate for osteomyelitis due to a chronic left great toe ulcer showed no evidence of osteomyelitis. He had episodes of hypoglycemia. Amaryl was discontinued. He will continue on basal insulin at the [facility] but remain off Amaryl. He was started on Lanoxin for AF with RVR. His rate returned to satisfactory range and he will continue digoxin at the [facility]. On April 25 he was stable for discharge back to [facility] and follow with Dr. Mueller. - Time Spent with Patient Total time spent providing and/or coordinating discharge services: - Discharge Medications Prescriptions: cephALEXin [Keflex] 500 mg PO TID 5 Days capsule Doxycycline 100 mg PO BID 5 Days capsule Home Medications: Dextrose/Dextrin/Maltose [Insta-Glucose Gel] 31 gm PO ONCE PRN 09/15/14 [History ] Hydroxychloroquine Sulfate [Plaquenil] 200 mg PO DAILY 09/15/14 [History] Insulin Glargine,Hum.rec.anlog [Lantus Solostar] 50 unit SQ HS 09/15/14 [History ] Levothyroxine Sodium [Synthroid] 150 mcg PO DAILY 09/15/14 [History] Nitroglycerin [Nitrostat] 0.4 mg SL 3-4XD PRN 09/15/14 [History] Spironolactone [Aldactone] 25 mg PO DAILY 09/15/14 [History] Metoprolol [Lopressor] 50 mg PO BID tablet 09/18/14 [Rx] Verapamil ER (24 HR) [Calan SR] 240 mg PO HS 365 Days tablet.er 09/18/14 [Rx] Aspirin 81 mg PO DAILY 12/22/16 [History] Dimethicone/Zinc Oxide [Nicanor Protect Cream] 1 applic TP BID 12/22/16 [History] Nystatin POWDER [Nystop] 1 appl TP BID 12/22/16 [History] Cholecalciferol (Vitamin D3) [Vitamin D3] 2,000 unit PO 04/21/17 [History] Ferrous Sulfate [Iron] 325 mg PO DAILY 04/21/17 [History] Bumetanide [Bumex] 1 mg PO BIDDIURETIC tablet 04/25/17 [Rx] Digoxin [Lanoxin] 0.375 mg PO DAILY tablet 04/25/17 [Rx] Doxycycline 100 mg PO BID 5 Days capsule 04/25/17 [Rx] Lactobacillus [Culturelle] 1 each PO BID 5 Days cap.sprink 04/25/17 [Rx] Potassium Chloride 20 meq PO BID tab.er.prt 04/25/17 [Rx] cephALEXin [Keflex] 500 mg PO TID 5 Days capsule 04/25/17 [Rx] Allergies/Adverse Reactions: 3 Allergy/AdvReac Type Severity Reaction Status Date / Time No Known Allergies Allergy Verified 12/22/16 11:46 Date of admission: 04/22/17 11:34 Primary care physician: Casey Mueller MD - Constitutional Vitals: Temp Pulse Resp BP Pulse Ox 98.5 F 98 18 146/101 96 04/25/17 06:50 04/25/17 06:50 04/25/17 06:50 04/25/17 06:50 04/25/17 06:50 - Patient Status Disposition: Transfer SNF Condition: Good Functional capacity at discharge: uses cane/walker Overall status at discharge: patient is progressing back to baseline - Discharge Instructions Follow Up With: Casey Mueller MD [Primary Care Provider] - 1 week - Diet and Activity Activity: resume usual activities as tolerated Diet: advance to your usual diet - VTE Reasons for not Prescribing Prophylaxis: Treatment not Indicated - Low risk for VTE
--- NOTE | 2017-04-25 15:05 | Physician Discharge Referral ---
ExtendedCare Referral Info Transfer To: [facility] Provider in Charge: Alejandro Provider in Charge after Transfer: PCP Mary) - Diagnosis (1) Cellulitis Priority: Primary Status: Acute (2) Hypokalemia Priority: Secondary Status: Acute (3) Atrial fibrillation Priority: Secondary Status: Chronic (4) Hypothyroidism Priority: Secondary Status: Chronic (5) UTI (urinary tract infection) Priority: Secondary Status: Acute (6) DM type 2 (diabetes mellitus, type 2) Priority: Secondary Status: Chronic Prognosis: Fair Aware of Diagnosis: Patient Aware of Prognosis: Patient - Transfer Medications Prescriptions: cephALEXin [Keflex] 500 mg PO TID 5 Days capsule Doxycycline 100 mg PO BID 5 Days capsule Home Medications: Dextrose/Dextrin/Maltose [Insta-Glucose Gel] 31 gm PO ONCE PRN 09/15/14 [History ] Hydroxychloroquine Sulfate [Plaquenil] 200 mg PO DAILY 09/15/14 [History] Insulin Glargine,Hum.rec.anlog [Lantus Solostar] 50 unit SQ HS 09/15/14 [History ] Levothyroxine Sodium [Synthroid] 150 mcg PO DAILY 09/15/14 [History] Nitroglycerin [Nitrostat] 0.4 mg SL 3-4XD PRN 09/15/14 [History] Spironolactone [Aldactone] 25 mg PO DAILY 09/15/14 [History] Metoprolol [Lopressor] 50 mg PO BID tablet 09/18/14 [Rx] Verapamil ER (24 HR) [Calan SR] 240 mg PO HS 365 Days tablet.er 09/18/14 [Rx] Aspirin 81 mg PO DAILY 12/22/16 [History] Dimethicone/Zinc Oxide [Nicanor Protect Cream] 1 applic TP BID 12/22/16 [History] Nystatin POWDER [Nystop] 1 appl TP BID 12/22/16 [History] Cholecalciferol (Vitamin D3) [Vitamin D3] 2,000 unit PO 04/21/17 [History] Ferrous Sulfate [Iron] 325 mg PO DAILY 04/21/17 [History] Bumetanide [Bumex] 1 mg PO BIDDIURETIC tablet 04/25/17 [Rx] Digoxin [Lanoxin] 0.375 mg PO DAILY tablet 04/25/17 [Rx] Doxycycline 100 mg PO BID 5 Days capsule 04/25/17 [Rx] Lactobacillus [Culturelle] 1 each PO BID 5 Days cap.sprink 04/25/17 [Rx] Potassium Chloride 20 meq PO BID tab.er.prt 04/25/17 [Rx] cephALEXin [Keflex] 500 mg PO TID 5 Days capsule 04/25/17 [Rx] Allergies/Adverse Reactions: 3 Allergy/AdvReac Type Severity Reaction Status Date / Time No Known Allergies Allergy Verified 12/22/16 11:46 - Respiratory Orders Oxygen / L per min (2 L/m by nasal cannula when necessary to keep sat greater than 90%.) Smoking Cessation: Smoking cessation has been advised. For more information, call the [place] Tobacco Quit Line at 7-965-TNSS-NOW. - Lab Orders Lab Orders: Other (include drug levels w/frequency) (CBC with differential, BMP , BN peptide, digoxin level in a.m.) - Mobility Orders Ambulate - Rehabiliation Orders Rehab Potential: Fair Rehab Orders: Evaluation for Physical Therapy, Evaluation for Occupational Therapy CERTIFICATION: I certify that the transfer of the above named patient to an Extended Care Facility is necessary for the continuing treatment of the diagnosis listed. The above information is true and accurate reflection of patient's current condition. Confidential - Redisclosure prohibited without a patient's written consent.
--- NOTE | 2017-04-26 21:23 | Electrocardiograph Report ---
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
== END 2017-04-25 16:14 | DRG 603 ==
LOC: EMEROOPIK 18:29 → INPPIK 18:29
PROVIDERS: ADMIT Internal Medicine; ATTEND Internal Medicine